=== PATIENT | female | born 1945 | race Caucasian/White ===

== ENCOUNTER 2017-05-19 07:50 | Day surgery (SDC) | payer OTHER ==
[2017-05-19] MEDS ORDERED: D5 LR 1000 ML 1,000 ML IV ONE (07:54)
[2017-05-19] MEDS ORDERED: DIPRIVAN VIAL 20 ML ONE (08:51)
[2017-05-19 09:32] VITALS: BP 112/66
== END 2017-05-19 09:38 | disposition home or self-care (01) ==
LOC: SURG1 07:50
PROVIDERS: ATTEND Surgery
PROC: 0DJD8ZZ Inspection of Lower Intestinal Tract, Via Natural or Artificial Opening Endoscopic (ICD-10-PCS; principal; 2017-05-19 09:15)
PROC: 0DBP8ZX Excision of Rectum, Via Natural or Artificial Opening Endoscopic, Diagnostic (ICD-10-PCS; principal; 2017-05-19 09:15)
DX: R10.84 Generalized abdominal pain (principal); K59.09 Other constipation; K43.9 Ventral hernia without obstruction or gangrene; K62.1 Rectal polyp; K57.30 Diverticulosis of large intestine without perforation or abscess without bleeding
CPT/HCPCS: 99100; A4217; J3490; J7120

== ENCOUNTER → 2017-05-25 | Outpatient (CLI) | payer OTHER ==
[2015-01-28 19:31] VITALS: BP 119/82
[~2017-05-25] MED LIST: NS 100 ML IV 100 ML IV ONE
[2017-05-25 09:24] LABS: CREATININE 1.53 mg/dL (0.55-1.02)
--- NOTE | 2017-05-25 10:52 | CT ---
HISTORY: Epigastric pain. Study: CT abdomen and pelvis without contrast Comparison: None. Technique: Multiple axial images of the abdomen and pelvis were obtained from the lung bases to the pubic symphy sis without the administration of IV contrast. Dose reduction techniques including Automated Exposur e Control (AEC) and adjustment of mA and kV were utilized. Findings: Study limited secondary to lack of IV contrast. 4 mm pulmonary nodule along the right major fissure (series 3, image 1). Bibasilar scarring versus at electasis. Otherwise, the visualized portions of the lung bases are unremarkable. Coronary artery ca lcifications. The liver, spleen, pancreas, kidneys, and adrenal glands are unremarkable in their CT a ppearance. The gallbladder is unremarkable in its CT appearance. No significant mesenteric lymphaden opathy or stranding can be observed. No free fluid or free air is seen within the abdomen. Supraumb ilical ventral hernia containing a loop of transverse colon with hernia neck of 4.4 cm. The bowel is otherwise without compromise. Scattered colonic diverticulum without evidence of diverticulitis. Cici ining large and small bowel appear normal. The uterus and ovaries appear surgically absent. The urina ry bladder is grossly unremarkable. Degenerative changes of the spine. No aggressive osseous lesions. IMPRESSION: 1. No CT evidence of acute abdominal/pelvic pathology. 2. Supraumbilical ventral hernia as above. 3. 4 mm pulmonary nodule along the right major fissure. Recommend dedicated CT of the chest for furth er characterization. 4. Other chronic findings as above. Reported By:
== END | disposition home or self-care (01) | DRG 392 ==
LOC: RAD 08:32
PROVIDERS: ATTEND Surgery
DX: R10.13 Epigastric pain (principal); K43.9 Ventral hernia without obstruction or gangrene; R91.1 Solitary pulmonary nodule
CPT/HCPCS: 36415; 74176; 82565; 84520; A4222

== ENCOUNTER → 2017-05-31 | Outpatient (CLI) | payer OTHER ==
[2017-05-19 09:32] VITALS: BP 112/66
[2017-05-31 10:26] LABS: BASOPHILS # (AUTO) 0.1 X10^3/uL (0.0-0.1); BASOPHILS % (AUTO) 1.2 % (0.2-1.0); BILIRUBIN,URINE 1+ (NEGATIVE); BLOOD/HEMOGLOBIN,URINE 1+ (NEGATIVE); EOSINOPHILS # (AUTO) 0.3 x10^3/uL (0.0-0.2); EOSINOPHILS % (AUTO) 4.6 % (0.9-2.9); GLUCOSE, URINE NEGATIVE (NEGATIVE); HEMATOCRIT 35.1 % (36.0-47.0); HEMOGLOBIN 11.5 g/dL (12.0-16.0); KETONES,URINE NEGATIVE (NEGATIVE); LEUKOCYTE ESTERASE ,URINE 3+ (NEGATIVE); LYMPHOCYTES # (AUTO) 1.3 X10^3/uL (1.3-2.9); LYMPHOCYTES % (AUTO) 22.2 % (21.0-51.0); MEAN CORPUSCULAR HEMOGLOBIN 30.3 pg (27.0-34.0); MEAN CORPUSCULAR HGB CONC 32.7 g/dL (33.0-35.0); MEAN CORPUSCULAR VOLUME 92.5 fL (80.0-100.0); MEAN PLATELET VOLUME 7.2 fL (7.4-11.0); MONOCYTES # (AUTO) 0.5 x10^3/uL (0.3-0.8); MONOCYTES % (AUTO) 9.2 % (0.0-13.0); NEUTROPHILS # (AUTO) 3.6 x10^3/uL (2.2-4.8); NEUTROPHILS % (AUTO) 62.8 % (42.0-75.0); NITRITES,URINE NEGATIVE (NEGATIVE); PLATELET COUNT 319 X10^3/uL (150.0-450.0); PROTEIN,URINE 2+ (NEGATIVE); RED BLOOD COUNT 3.79 X10^6/uL (3.5-5.4); UROBILINOGEN,URINE NORMAL (NORMAL); WHITE BLOOD COUNT 5.8 X10^3/uL (3.6-10.0)
[2017-05-31 10:37] LABS: ALBUMIN 3.3 g/dL (3.4-5.0); CALCIUM 8.7 mg/dL (8.5-10.1); CARBON DIOXIDE 27.2 mmol/L (21-32); COR CA(FOR HYPOALB) 9.3 mg/dL (8.5-10.1); CREATININE 1.66 mg/dL (0.55-1.02); TOTAL PROTEIN 7.4 g/dL (6.4-8.2)
[2017-05-31 10:42] LABS: APPEARANCE,URINE HAZY (CLEAR); COLOR,URINE YELLOW (YELLOW)
[2017-05-31 10:43] LABS: BACTERIA,URINE TRACE /HPF (NEGATIVE); SQUAMOUS EPITHELIAL CELL,UR NUMEROUS /HPF (NEGATIVE)
--- NOTE | 2017-05-31 11:36 | RAD ---
HISTORY: Preoperative exam for hernia repair Study: Two views of the chest Comparison: None Findings: The patient is rotated. The cardiac silhouette is enlarged. The lungs are clear without focal infil trate or effusion. The aorta is partially calcified and tortuous. IMPRESSION: 1. Cardiomegaly. Reported By:
== END | disposition home or self-care (01) | DRG 951 ==
LOC: LAB 09:47
PROVIDERS: ATTEND Surgery
DX: Z01.818 Encounter for other preprocedural examination (principal); K43.6 Other and unspecified ventral hernia with obstruction, without gangrene; Z01.810 Encounter for preprocedural cardiovascular examination; Z01.811 Encounter for preprocedural respiratory examination; I51.7 Cardiomegaly
CPT/HCPCS: 36415; 71046; 80053; 81001; 85025; 85610; 85730; 93005; 93010

== ENCOUNTER 2017-06-05 08:50 | Inpatient (IN) | payer OTHER ==
[2017-06-05] MEDS ORDERED: LR 1000 ML IV 1,000 ML IV ONE (09:04)
[2017-06-05] MEDS ORDERED: FLAGYL IV PREMIX 500 MG BAG 500 MG/100 ML BAG IV ONE (09:05)
[2017-06-05] MEDS ORDERED: ANCEF 1 GM IV PREMIX* 1 GM/50 ML BAG IV ONE (09:05)
[2017-06-05] MEDS ORDERED: QUELICIN (OR ANECTINE) ONE (09:10)
[2017-06-05] MEDS ORDERED: NORCURON INJ 10 MG VIAL ONE (09:10)
[2017-06-05] MEDS ORDERED: ROBINUL ONE (09:10)
[2017-06-05] MEDS ORDERED: ATROPINE SULFATE ONE (09:10)
[2017-06-05] MEDS ORDERED: ZOFRAN INJ 4 MG VIAL ONE (09:10)
[2017-06-05] MEDS ORDERED: ULTANE GAS IN ONE (09:10)
[2017-06-05] MEDS ORDERED: VERSED ONE (09:10)
[2017-06-05] MEDS ORDERED: EPHEDRINE SULFATE INJ ONE (09:10)
[2017-06-05] MEDS ORDERED: DIPRIVAN VIAL ONE (09:10)
[2017-06-05] MEDS ORDERED: NEOSTIGMINE INJ ONE (09:10)
[2017-06-05 09:33] VITALS: BMI 35.2
[2017-06-05] MEDS ORDERED: DILAUDID INJ ONE (10:00)
[2017-06-05] MEDS ORDERED: FENTANYL INJ 250 mcg ONE ×3 (10:01→10:10)
[2017-06-05] MEDS ORDERED: BACITRACIN VIAL ONE (10:14)
[2017-06-05] MEDS ORDERED: NS IRRIGATION 1000 ML 1,000 ML with BACITRACIN VIAL 50,000 UNT IR ONE ×2 (11:00)
[2017-06-05 11:08] LABS: BILIRUBIN,URINE NEGATIVE (NEGATIVE); BLOOD/HEMOGLOBIN,URINE 2+ (NEGATIVE); GLUCOSE, URINE NEGATIVE (NEGATIVE); KETONES,URINE NEGATIVE (NEGATIVE); LEUKOCYTE ESTERASE ,URINE NEGATIVE (NEGATIVE); NITRITES,URINE NEGATIVE (NEGATIVE); PROTEIN,URINE NEGATIVE (NEGATIVE); UROBILINOGEN,URINE NORMAL (NORMAL)
[2017-06-05 11:41] LABS: APPEARANCE,URINE CLEAR (CLEAR); COLOR,URINE YELLOW (YELLOW)
[2017-06-05 11:43] LABS: AMORPHOUS SEDIMENT,UR 2+ /HPF (NEGATIVE); BACTERIA,URINE TRACE /HPF (NEGATIVE); SQUAMOUS EPITHELIAL CELL,UR RARE /HPF (NEGATIVE)
[2017-06-05] MEDS ORDERED: BENADRYL INJ 50 MG VIAL IVP PRN (12:03)
[2017-06-05] MEDS ORDERED: DILAUDID INJ IVP PRN (12:03)
[2017-06-05] MEDS ORDERED: ZOFRAN INJ 4 MG VIAL IVP PRN (12:03)
[2017-06-05] MEDS ORDERED: PHENERGAN INJ 25 MG IVP PRN (12:03)
[2017-06-05] MEDS ORDERED: REGLAN INJ 10 MG VIAL IVP PRN (12:03)
[2017-06-05] MEDS ORDERED: DILAUDID INJ IVP ONE ×3 (12:15→12:25)
[2017-06-05] MEDS ORDERED: FENTANYL INJ 250 mcg IVP ONE (12:35)
[2017-06-05] MEDS: ANCEF VIAL 1 GM 1 GM in NS 100 ML IV + SPIKE MINIBAG* 100 ML IV SCH ×2 (13:07→21:05)
[2017-06-05] MEDS: DILAUDID INJ IVP PRN ×2 (13:23→21:13)
[2017-06-05] MEDS: D5 1/2 NS 1000 ML 1,000 ML IV SCH ×2 (13:24→21:05)
[2017-06-05] MEDS ORDERED: NS 250 ML IV 250 ML IV ONE (16:06)
--- NOTE | 2017-06-05 18:26 | OR.GENERIC ---
Post-Op Note Generic - Post-Op Note Operative Report: Pt underwent Laparotomy and repair of large incarcerated ventral hernia . the TC was in the hernia sac along with the omentum .. Pt did well with minimal blood loss . on IV ATB for only 24 h , DVT prophylaxis .. to have only water for now then advance her diet in am
[2017-06-05] MEDS: DESYREL PO SCH (22:38)
[2017-06-06] MEDS: TYLENOL 325 MG TAB PO PRN ×2 (00:40→21:00)
[2017-06-06] MEDS: D5 1/2 NS 1000 ML 1,000 ML IV SCH ×3 (04:24→21:25)
[2017-06-06] MEDS: DILAUDID INJ IVP PRN ×4 (04:24→21:40)
[2017-06-06] MEDS: ANCEF VIAL 1 GM 1 GM in NS 100 ML IV + SPIKE MINIBAG* 100 ML IV SCH ×3 (05:41→21:26)
[2017-06-06 05:52] LABS: BASOPHILS % (AUTO) 0.6 % (0.2-1.0); EOSINOPHILS # (AUTO) 0.1 x10^3/uL (0.0-0.2); EOSINOPHILS % (AUTO) 1.6 % (0.9-2.9); HEMOGLOBIN 9.7 g/dL (12.0-16.0); LYMPHOCYTES # (AUTO) 0.9 X10^3/uL (1.3-2.9); LYMPHOCYTES % (AUTO) 14.2 % (21.0-51.0); MEAN CORPUSCULAR HEMOGLOBIN 31.1 pg (27.0-34.0); MEAN CORPUSCULAR HGB CONC 33.5 g/dL (33.0-35.0); MEAN CORPUSCULAR VOLUME 92.7 fL (80.0-100.0); MEAN PLATELET VOLUME 7.2 fL (7.4-11.0); MONOCYTES # (AUTO) 0.7 x10^3/uL (0.3-0.8); MONOCYTES % (AUTO) 11.7 % (0.0-13.0); NEUTROPHILS # (AUTO) 4.5 x10^3/uL (2.2-4.8); NEUTROPHILS % (AUTO) 71.9 % (42.0-75.0); PLATELET COUNT 279 X10^3/uL (150.0-450.0); RED BLOOD COUNT 3.12 X10^6/uL (3.5-5.4); RED CELL DISTRIBUTION WIDTH 14.3 % (11.6-16.5); WHITE BLOOD COUNT 6.2 X10^3/uL (3.6-10.0)
[2017-06-06 06:06] LABS: ALBUMIN 2.6 g/dL (3.4-5.0); CALCIUM 7.7 mg/dL (8.5-10.1); CARBON DIOXIDE 25.7 mmol/L (21-32); COR CA(FOR HYPOALB) 8.8 mg/dL (8.5-10.1); CREATININE 1.52 mg/dL (0.55-1.02)
[2017-06-06] MEDS: LOVENOX INJ 40 MG SYR SC SCH (09:24)
[2017-06-06] MEDS ORDERED: GLUCOPHAGE ONE (11:27)
[2017-06-06] MEDS: EFFEXOR XR 150 MG CAP PO SCH (11:45)
[2017-06-06] MEDS: GLUCOPHAGE PO SCH (11:45)
[2017-06-06] MEDS: PERCOCET TAB 5/325 MG PO PRN (14:38)
[2017-06-06] MEDS ORDERED: ZOFRAN INJ 4 MG VIAL IVP PRN (17:12)
--- NOTE | 2017-06-06 18:26 | DR.CONSULT ---
Consult - Consultation for Day of: Date: 06/05/17 - Chief Complaint Chief Complaint: LARGE INCARCERATED VENTRAL HERNIA REPAIR - Allergies Allergies/Adverse Reactions: Allergies Allergy/AdvReac Type Severity Reaction Status Date / Time penicillin G Allergy Verified 05/19/17 08:12 - History of Present Illness History of Present Illness: IS STATUS POST LARGE INCARCERATED VENTRAL HERNIA REPAIR TODAY BY . I WAS CONSULTED FOR MEDICAL MANAGEMENT. FOLLOWING SURGERY, PATIENT WAS PLACED ON ANCEF 1GM IV Q8H, LOVENOX 40MG SC DAILY FOR DVT PROPHYLAXIS, AND DILAUDID 1MG IV Q3H PRN FOR PAIN CONTROL. PATIENT IS NOTED WITH AN AQUACELL SURGICAL DRESSING TO MEDIAL ABDOMEN. DRESSING IS DRY AND INTACT WITH NO SIGNS OR SYMPTOMS OF INFECTION NOTED TO SITE AT THIS TIME. PATIENT WAS PLACED ON A LIQUID DIET. WE WILL REVIEW HOME MEDICATIONS TODAY AND RESUME APPROPRIATE. WE WILL ALSO CONTINUE IV ANTIBIOTICS, IV ANTIBIOTICS, AND PAIN MEDICATIONS. WE PLAN TO FOLLOW UP WITH AM LABS AND CONTINUE TO MONITOR PATIENT. - Past Medical History Past Medical History: Anxiety, Arthritis, Coronary Artery Disease, CVA, Diabetes , Dyslipidemia, Renal Disease, Sleep Apnea - Past Surgical History Surgical History: Appendectomy, Hysterectomy Additional Surgical History: CATARACT SURGERY - Family History Family Medical History: Diabetes Mellitus, ID, Coronary Artery Disease, Sudden Cardiac , Hypertension - Social History Does patient currently use any type of tobacco product: No Have you used tobacco products in the last 12 months: No Type of Tobacco Use: None Does any household member use tobacco: No Alcohol Use: None Drug Use: None - Medications Home Medications: Oxycodone HCl/Acetaminophen [Oxycodone/Acetaminophen 5-325 mg] 1 tab PO Q6H PRN 06/05/17 [History Confirmed 06/05/17] - Review of Systems Constitutional: Weakness Eyes: No Symptoms Reported ENT: No Symptoms Reported Respiratory: No Symptoms Reported Cardiovascular: No Symptoms Reported Gastrointestinal: Nausea, Abdominal Pain Genitourinary: No Symptoms Reported Musculoskeletal: No Symptoms Reported Skin: Wound (SURGICAL WOUND TO MEDIAL ABDOMEN ) Neurological: Weakness - Physical Exam Vital Signs: Temperature 98.5 F Pulse Rate [Right Brachial] 78 Pulse Rate 65 Respiratory Rate 20 Blood Pressure [Right Arm] 124/64 Blood Pressure 143/89 O2 Sat by Pulse Oximetry 95 Oriented: Normal Eyes: Normal Ear: Normal Nose: Normal Throat: Normal Respiratory: Clear Throughout Cardiovascular: Normal : Normal Auscultation: Bowel Sounds: Decreased Palpation: Normal Tenderness: Diffuse, Guarding. negative: Rebound, Rigidity Skin: Normal, Wound (MEDIAL ABDOMEN SURGICAL WOUND ) Musculoskeletal: Normal Psychiatric: Normal Mood Description: Calm Affect: Normal Speech Pattern: Clear - Plan Plan: LIQUID DIET, PAIN MEDICATIONS, IV FLUIDS, PHYSICAL THERAPY WHEN CLEARS PATIENT, CONTINUE TO MONITOR
--- NOTE | 2017-06-06 18:39 | PCM.PROG ---
Progress Note - Progress Note for Day of Date: 06/06/17 - Subjective Subjective: IS ONE DAY POST OP LARGE INCARCERATED VENTRAL HERNIA REPAIR. TODAY, SHE IS ALERT AND ORIENTED, LYING IN BED ON MORNING ROUNDS. SHE IS NOTED WITH COMPLAINTS OF ABDOMINAL PAIN. ON EXAMINATION, HEART IS REGULAR IN RATE AND RHYTHM. BILATERAL LUNGS ARE CLEAR TO AUSCULTATION. ABDOMEN IS ROUND, SOFT, AND NOTED WITH A MIDLINE DRESSING TO SURGICAL SITE. DRESSING IS DRY AND INTACT WITH NO SIGNS OR SX INFECTION NOTED. DECREASED BOWEL SOUNDS NOTED IN ALL QUADRANTS. THERE IS NORMAL RANGE OF MOTION NOTED TO ALL EXTREMITIES. HER VITALS THIS MORNING ARE 98.4-84-20-97%-148/71. LABS WERE OBTAINED. ABNORMAL LAB VALUES INCLUDE THE FOLLOWING: RBC 3.12, HGB 9.7, HCT 29.0, CREATININE 1.52, GLUCOSE 172 , CALCIUM 7.8, AST 12, TOTAL PROTEIN 6.0, ALBUMIN 2.6. A URINALYSIS WAS OBTAINED ON ADMISSION AND REVEALED WBC 0-2, RBC 3-5, OCCULT BLOOD 2+, LEUKOCYTES NEGATIVE, BACTERIA TRACE. A URINE CULTURE IS PENDING. TODAY, WE WILL CONTINUE WITH CURRENT PLAN OF CARE. WE PLAN TO FOLLOW UP WITH AM LABS AND CONTINUE TO MONITOR PATIENT. - Past Medical Family Social History Past Med/Fam/Surg Hx: No changes since H&P Allergies: Allergies penicillin G Allergy (Verified 05/19/17 08:12) - Review of Systems ROS: No change since H&P - Vital Signs and I&O's Vital Signs: Temperature 100.0 F Pulse Rate [Right Brachial] 77 Pulse Rate 65 Respiratory Rate 20 Blood Pressure [Right Arm] 144/71 Blood Pressure 143/89 O2 Sat by Pulse Oximetry 93 Intake and Output: Intake & Output 06/04/17 06/05/17 06/06/17 06/07/17 11:59 11:59 11:59 11:59 Intake Total 781 240 Output Total 300 Balance -300 781 240 - Physical Exam Oriented: Normal Eyes: Normal Ear: Normal Nose: Normal Throat: Normal Respiratory: Normal Cardiovascular: Normal : Normal Auscultation: Bowel Sounds: Decreased Palpation: Normal Tenderness: Diffuse, Guarding. negative: Rebound, Rigidity Skin: Normal, Wound (MEDIAL ABDOMEN SURGICAL WOUND ) Musculoskeletal: Normal Psychiatric: Normal Mood Description: Calm Affect: Normal Speech Pattern: Clear - Laboratory and Diagnostics Result Diagrams: 06/06/17 05:20 06/06/17 05:20 Labs: 06/05/17 10:45 Urine,Clean Catch Urine Culture - Preliminary Laboratory WBC 6.2 X10^3/uL (3.6-10.0) 06/06/17 05:20 RBC 3.12 X10^6/uL (3.5-5.4) L 06/06/17 05:20 Hgb 9.7 g/dL (12.0-16.0) L 06/06/17 05:20 Hct 29.0 % (36.0-47.0) L 06/06/17 05:20 MCV 92.7 fL (80.0-100.0) 06/06/17 05:20 MCH 31.1 pg (27.0-34.0) 06/06/17 05:20 MCHC 33.5 g/dL (33.0-35.0) 06/06/17 05:20 RDW 14.3 % (11.6-16.5) 06/06/17 05:20 Plt Count 279 X10^3/uL (150.0-450.0) 06/06/17 05:20 MPV 7.2 fL (7.4-11.0) L 06/06/17 05:20 Neut % (Auto) 71.9 % (42.0-75.0) 06/06/17 05:20 Lymph % (Auto) 14.2 % (21.0-51.0) L 06/06/17 05:20 [place] % (Auto) 11.7 % (0.0-13.0) 06/06/17 05:20 Eos % (Auto) 1.6 % (0.9-2.9) 06/06/17 05:20 Baso % (Auto) 0.6 % (0.2-1.0) 06/06/17 05:20 Neut # (Auto) 4.5 x10^3/uL (2.2-4.8) 06/06/17 05:20 Lymph # (Auto) 0.9 X10^3/uL (1.3-2.9) L 06/06/17 05:20 Cross # (Auto) 0.7 x10^3/uL (0.3-0.8) 06/06/17 05:20 Eos # (Auto) 0.1 x10^3/uL (0.0-0.2) 06/06/17 05:20 Baso # (Auto) 0.0 X10^3/uL (0.0-0.1) 06/06/17 05:20 Absolute Nucleated RBC 0.0 /100WBC 06/06/17 05:20 Sodium 137 mmol/L (136-145) 06/06/17 05:20 Corrected Sodium 139 mmol/L (136-145) 06/06/17 05:20 Potassium 4.3 mmol/L (3.5-5.1) 06/06/17 05:20 Chloride 105 mmol/L (98-107) 06/06/17 05:20 Carbon Dioxide 25.7 mmol/L (21-32) 06/06/17 05:20 BUN 11 mg/dL (7-18) 06/06/17 05:20 Creatinine 1.52 mg/dL (0.55-1.02) H 06/06/17 05:20 Est GFR (MDRD) Af Amer 43 (>60) L 06/06/17 05:20 Est GFR (MDRD) Non-Af 36 (>60) L 06/06/17 05:20 Glucose 172 mg/dL (65-99) H 06/06/17 05:20 POC Glucose (mg/dL) 158 mg/dL (65-99) H 06/06/17 17:16 Calcium 7.7 mg/dL (8.5-10.1) L 06/06/17 05:20 Corrected Calcium 8.8 mg/dL (8.5-10.1) 06/06/17 05:20 Total Bilirubin 0.30 mg/dL (0.2-1.0) 06/06/17 05:20 AST 12 Units/L (15-37) L 06/06/17 05:20 ALT 15 Units/L (12-78) 06/06/17 05:20 Alkaline Phosphatase 78 Units/L (46-116) 06/06/17 05:20 Total Protein 6.0 g/dL (6.4-8.2) L 06/06/17 05:20 Albumin 2.6 g/dL (3.4-5.0) L 06/06/17 05:20 Globulin 3.4 g/dL (2.5-4.5) 06/06/17 05:20 Albumin/Globulin Ratio 0.8 Ratio (1.1-2.1) L 06/06/17 05:20 Specimen Type Catherized urine 06/05/17 10:45 Urine Color Yellow (YELLOW) 06/05/17 10:45 Urine Appearance Clear (CLEAR) 06/05/17 10:45 Urine pH 5.0 (5.0 - 8.0) 06/05/17 10:45 Ur Specific [place] 1.015 (1.000-1.030) 06/05/17 10:45 Urine Protein Negative (NEGATIVE) 06/05/17 10:45 Urine Glucose (UA) Negative (NEGATIVE) 06/05/17 10:45 Urine Ketones Negative (NEGATIVE) 06/05/17 10:45 Urine Occult Blood 2+ (NEGATIVE) 06/05/17 10:45 Urine Nitrite Negative (NEGATIVE) 06/05/17 10:45 Urine Bilirubin Negative (NEGATIVE) 06/05/17 10:45 Urine Urobilinogen Normal (NORMAL) 06/05/17 10:45 Ur Leukocyte Esterase Negative (NEGATIVE) 06/05/17 10:45 Urine RBC 3-5 /HPF (NONE SEEN) 06/05/17 10:45 Urine WBC 0-2 /HPF (NONE SEEN) 06/05/17 10:45 Ur Squamous Epith Cells Rare /HPF (NEGATIVE) 06/05/17 10:45 Amorphous Sediment 2+ /HPF (NEGATIVE) 06/05/17 10:45 Urine Bacteria Trace /HPF (NEGATIVE) 06/05/17 10:45 Ur Culture Indicated? Yes/culture set up 06/05/17 10:45 Tissue Pathology To follow 06/05/17 12:18 - Plan (1) Status post repair of ventral hernia Status: Acute Plan: CONTINUE IV FLUIDS, PAIN MEDICATION, AND IV ANTIBIOTICS. PHYSICAL THERAPY WHEN PATIENT IS CLEARED BY
[2017-06-06] MEDS: DESYREL PO SCH ×2 (21:25)
[2017-06-07] MEDS: DILAUDID INJ IVP PRN (04:32)
[2017-06-07] MEDS: D5 1/2 NS 1000 ML 1,000 ML IV SCH ×3 (04:33→20:34)
[2017-06-07] MEDS: ANCEF VIAL 1 GM 1 GM in NS 100 ML IV + SPIKE MINIBAG* 100 ML IV SCH (05:19)
[2017-06-07 06:16] LABS: BASOPHILS # (AUTO) 0.1 X10^3/uL (0.0-0.1); BASOPHILS % (AUTO) 0.7 % (0.2-1.0); EOSINOPHILS # (AUTO) 0.2 x10^3/uL (0.0-0.2); EOSINOPHILS % (AUTO) 2.7 % (0.9-2.9); HEMATOCRIT 28.5 % (36.0-47.0); HEMOGLOBIN 9.4 g/dL (12.0-16.0); LYMPHOCYTES % (AUTO) 13.1 % (21.0-51.0); MEAN CORPUSCULAR HGB CONC 33.2 g/dL (33.0-35.0); MEAN CORPUSCULAR VOLUME 93.4 fL (80.0-100.0); MEAN PLATELET VOLUME 7.3 fL (7.4-11.0); MONOCYTES # (AUTO) 0.8 x10^3/uL (0.3-0.8); MONOCYTES % (AUTO) 11.1 % (0.0-13.0); NEUTROPHILS # (AUTO) 5.4 x10^3/uL (2.2-4.8); NEUTROPHILS % (AUTO) 72.4 % (42.0-75.0); PLATELET COUNT 275 X10^3/uL (150.0-450.0); RED BLOOD COUNT 3.05 X10^6/uL (3.5-5.4); RED CELL DISTRIBUTION WIDTH 14.5 % (11.6-16.5); WHITE BLOOD COUNT 7.4 X10^3/uL (3.6-10.0)
[2017-06-07 06:29] LABS: ALBUMIN 2.5 g/dL (3.4-5.0); CALCIUM 7.7 mg/dL (8.5-10.1); CARBON DIOXIDE 24.4 mmol/L (21-32); COR CA(FOR HYPOALB) 8.9 mg/dL (8.5-10.1); CREATININE 1.27 mg/dL (0.55-1.02); TOTAL PROTEIN 6.2 g/dL (6.4-8.2)
--- NOTE | 2017-06-07 07:22 | RAD ---
HISTORY: Cough, fever Study: Chest AP portable Comparison: 05/31/2017 Findings: The heart is enlarged. No congestive heart failure is noted. The zaki are normal. The aorta is calcif ied. The lungs are mildly hypo inflated but free of acute infiltrates. No pleural effusions are ident ified. The bony thorax is unremarkable. IMPRESSION: Moderate cardiomegaly without congestive heart failure Lungs mildly hypo inflated but free of acute infiltrates Reported By:
[2017-06-07] MEDS ORDERED: GLUCOPHAGE ONE (07:41)
[2017-06-07] MEDS: GLUCOPHAGE PO SCH (08:34)
[2017-06-07] MEDS: COZAAR PO SCH (08:34)
[2017-06-07] MEDS: HYDROCHLOROTHIAZIDE 12.5 MG CAP PO SCH (08:34)
[2017-06-07] MEDS: PERCOCET TAB 5/325 MG PO PRN ×2 (08:35→18:06)
[2017-06-07] MEDS: LOVENOX INJ 40 MG SYR SC SCH (08:35)
[2017-06-07] MEDS: EFFEXOR XR 150 MG CAP PO SCH (08:35)
--- NOTE | 2017-06-07 08:56 | DR.PROGNOT ---
Hospital Progress Notes - Progress Note for Day of: Progress Note Date: 06/07/17 - Chief Complaint Chief Complaint: PO laparotomy , repair of large incarcerated ventral hernia . still c/o nausea , no vaginal bleeding today. appetite is poor . was having low grade fever . - Past Medical Family Social History Past Med/Fam/Surg Hx: No changes since H&P Allergies: Allergies penicillin G Allergy (Verified 05/19/17 08:12) - Review Of Systems ROS: No change since H&P - Vital Signs Vital Signs: Temperature 98.6 F Pulse Rate [Right Brachial] 88 Pulse Rate 65 Respiratory Rate 16 Blood Pressure [Right Arm] 131/66 Blood Pressure 143/89 O2 Sat by Pulse Oximetry 96 - Physical Exam Oriented: Normal Eyes: Normal Ear: Normal Nose: Normal Throat: Normal Respiratory: Normal, Rhonchi (few scattered rhonchi both lung monte .), OTHER Cardiovascular: Normal : Normal GI:Auscultation: Decreased GI: Tenderness: Diffuse (incisional tenderness .BS +). negative: Rebound, Rigidity Skin: Normal, Wound (MEDIAL ABDOMEN SURGICAL WOUND ) Musculoskeletal: Normal Psychiatric: Normal Mood Description: Calm Affect: Normal Speech Pattern: Clear, Appropriate - Laboratory and Diagnostics Result Diagrams: 06/07/17 05:26 06/07/17 05:26 Labs: 06/05/17 10:45 Urine,Clean Catch Urine Culture - Final Laboratory WBC 7.4 X10^3/uL (3.6-10.0) 06/07/17 05:26 RBC 3.05 X10^6/uL (3.5-5.4) L 06/07/17 05:26 Hgb 9.4 g/dL (12.0-16.0) L 06/07/17 05:26 Hct 28.5 % (36.0-47.0) L 06/07/17 05:26 MCV 93.4 fL (80.0-100.0) 06/07/17 05:26 MCH 31.0 pg (27.0-34.0) 06/07/17 05:26 MCHC 33.2 g/dL (33.0-35.0) 06/07/17 05:26 RDW 14.5 % (11.6-16.5) 06/07/17 05:26 Plt Count 275 X10^3/uL (150.0-450.0) 06/07/17 05:26 MPV 7.3 fL (7.4-11.0) L 06/07/17 05:26 Neut % (Auto) 72.4 % (42.0-75.0) 06/07/17 05:26 Lymph % (Auto) 13.1 % (21.0-51.0) L 06/07/17 05:26 Saline % (Auto) 11.1 % (0.0-13.0) 06/07/17 05:26 Eos % (Auto) 2.7 % (0.9-2.9) 06/07/17 05:26 Baso % (Auto) 0.7 % (0.2-1.0) 06/07/17 05:26 Neut # (Auto) 5.4 x10^3/uL (2.2-4.8) H 06/07/17 05:26 Lymph # (Auto) 1.0 X10^3/uL (1.3-2.9) L 06/07/17 05:26 Saline # (Auto) 0.8 x10^3/uL (0.3-0.8) 06/07/17 05:26 Eos # (Auto) 0.2 x10^3/uL (0.0-0.2) 06/07/17 05:26 Baso # (Auto) 0.1 X10^3/uL (0.0-0.1) 06/07/17 05:26 Absolute Nucleated RBC 0.0 /100WBC 06/07/17 05:26 Sodium 136 mmol/L (136-145) 06/07/17 05:26 Corrected Sodium 138 mmol/L (136-145) 06/07/17 05:26 Potassium 4.3 mmol/L (3.5-5.1) 06/07/17 05:26 Chloride 104 mmol/L (98-107) 06/07/17 05:26 Carbon Dioxide 24.4 mmol/L (21-32) 06/07/17 05:26 BUN 8 mg/dL (7-18) 06/07/17 05:26 Creatinine 1.27 mg/dL (0.55-1.02) H 06/07/17 05:26 Est GFR (MDRD) Af Amer 53 (>60) L 06/07/17 05:26 Est GFR (MDRD) Non-Af 44 (>60) L 06/07/17 05:26 Glucose 165 mg/dL (65-99) H 06/07/17 05:26 POC Glucose (mg/dL) 156 mg/dL (65-99) H 06/07/17 05:50 Calcium 7.7 mg/dL (8.5-10.1) L 06/07/17 05:26 Corrected Calcium 8.9 mg/dL (8.5-10.1) 06/07/17 05:26 Total Bilirubin 0.20 mg/dL (0.2-1.0) 06/07/17 05:26 AST 10 Units/L (15-37) L 06/07/17 05:26 ALT 10 Units/L (12-78) L 06/07/17 05:26 Alkaline Phosphatase 80 Units/L (46-116) 06/07/17 05:26 Total Protein 6.2 g/dL (6.4-8.2) L 06/07/17 05:26 Albumin 2.5 g/dL (3.4-5.0) L 06/07/17 05:26 Globulin 3.7 g/dL (2.5-4.5) 06/07/17 05:26 Albumin/Globulin Ratio 0.7 Ratio (1.1-2.1) L 06/07/17 05:26 Specimen Type Catherized urine 06/05/17 10:45 Urine Color Yellow (YELLOW) 06/05/17 10:45 Urine Appearance Clear (CLEAR) 06/05/17 10:45 Urine pH 5.0 (5.0 - 8.0) 06/05/17 10:45 Ur Specific [place] 1.015 (1.000-1.030) 06/05/17 10:45 Urine Protein Negative (NEGATIVE) 06/05/17 10:45 Urine Glucose (UA) Negative (NEGATIVE) 06/05/17 10:45 Urine Ketones Negative (NEGATIVE) 06/05/17 10:45 Urine Occult Blood 2+ (NEGATIVE) 06/05/17 10:45 Urine Nitrite Negative (NEGATIVE) 06/05/17 10:45 Urine Bilirubin Negative (NEGATIVE) 06/05/17 10:45 Urine Urobilinogen Normal (NORMAL) 06/05/17 10:45 Ur Leukocyte Esterase Negative (NEGATIVE) 06/05/17 10:45 Urine RBC 3-5 /HPF (NONE SEEN) 06/05/17 10:45 Urine WBC 0-2 /HPF (NONE SEEN) 06/05/17 10:45 Ur Squamous Epith Cells Rare /HPF (NEGATIVE) 06/05/17 10:45 Amorphous Sediment 2+ /HPF (NEGATIVE) 06/05/17 10:45 Urine Bacteria Trace /HPF (NEGATIVE) 06/05/17 10:45 Ur Culture Indicated? Yes/culture set up 06/05/17 10:45 Tissue Pathology To follow 06/05/17 12:18 - Assessment and Plan 1: PO laparotomy , repair of large incarcerated ventral hernia . obesity . DM. will advance diet. OOB with binder. D/C Dilaudid . DVT prophylaxis . - Problem Patient Problems: Patient Problems Incarcerated ventral hernia (Acute) K46.0 Status post repair of ventral hernia (Acute) Z98.890, Z87.19
--- NOTE | 2017-06-07 19:50 | PCM.PROG ---
Progress Note - Progress Note for Day of Date: 06/07/17 - Subjective Subjective: IS DAY 2 POST OP LARGE INCARCERATED VENTRAL HERNIA REPAIR. TODAY, SHE IS ALERT AND ORIENTED, LYING IN BED ON MORNING ROUNDS. SHE IS NOTED WITH COMPLAINTS OF ABDOMINAL PAIN, BUT REPORTS SLIGHT IMPROVEMENT SINCE YESTERDAY. SHE IS ALSO NOTED WITH COMPLAINTS OF NAUSEA AND DECREASED APPETITIE. STAFF REPORTED THAT PATIENT HAD A PRODUCTIVE COUGH YESTERDAY. COUGH HAS IMPROVED TODAY. ON EXAMINATION, HEART IS REGULAR IN RATE AND RHYTHM. BILATERAL LUNGS ARE CLEAR TO AUSCULTATION. ABDOMEN IS ROUND, SOFT, AND NOTED WITH A MIDLINE DRESSING TO SURGICAL SITE. DRESSING IS DRY AND INTACT WITH NO SIGNS OR SX INFECTION NOTED. DECREASED BOWEL SOUNDS NOTED IN ALL QUADRANTS. THERE IS NORMAL RANGE OF MOTION NOTED TO ALL EXTREMITIES. HER VITALS THIS MORNING ARE 98.6-89-20-97%-123/63. LABS WERE OBTAINED. ABNORMAL LAB VALUES INCLUDE THE FOLLOWING: RBC 3.05, HGB 9.4, HCT 28.5, CREATININE 1.27, GLUCOSE 165, CALCIUM 7.7, AST 10, ALT 10, TOTAL PROTEIN 6.2, ALBUMIN 2.5. A CHEST XRAY WAS OBTAINED TODAY AND REVEALED MODERATE CARDIOMEGALY WITHOUT CONGESTIVE HEART FAILURE. LUNGS MILDLY HYPO INFLATED BUT FREE OF ACUTE INFILTRATES. TODAY, WE WILL CONTINUE WITH CURRENT PLAN OF CARE. WE PLAN TO FOLLOW UP WITH AM LABS AND CONTINUE TO MONITOR PATIENT. - Past Medical Family Social History Past Med/Fam/Surg Hx: No changes since H&P Allergies: Allergies penicillin G Allergy (Verified 05/19/17 08:12) - Review of Systems ROS: No change since H&P - Vital Signs and I&O's Vital Signs: Temperature 98.2 F Pulse Rate [Right Brachial] 72 Pulse Rate 65 Respiratory Rate 18 Blood Pressure [Right Arm] 90/54 Blood Pressure 143/89 O2 Sat by Pulse Oximetry 94 Intake and Output: Intake & Output 06/05/17 06/06/17 06/07/17 06/08/17 11:59 11:59 11:59 11:59 Intake Total 781 1765 880 Output Total 300 Balance -716 827 8079 880 - Physical Exam Oriented: Normal Eyes: Normal Ear: Normal Nose: Normal Throat: Normal Respiratory: Normal, Rhonchi (few scattered rhonchi both lung monte .), OTHER Cardiovascular: Normal : Normal Auscultation: Bowel Sounds: Decreased Palpation: Normal Tenderness: Diffuse (incisional tenderness .BS +), Guarding. negative: Rebound , Rigidity Skin: Normal, Wound (MEDIAL ABDOMEN SURGICAL WOUND ) Musculoskeletal: Normal Psychiatric: Normal Mood Description: Calm Affect: Normal Speech Pattern: Clear, Appropriate - Laboratory and Diagnostics Result Diagrams: 06/07/17 05:26 06/07/17 05:26 Labs: 06/05/17 10:45 Urine,Clean Catch Urine Culture - Final Laboratory WBC 7.4 X10^3/uL (3.6-10.0) 06/07/17 05:26 RBC 3.05 X10^6/uL (3.5-5.4) L 06/07/17 05:26 Hgb 9.4 g/dL (12.0-16.0) L 06/07/17 05:26 Hct 28.5 % (36.0-47.0) L 06/07/17 05:26 MCV 93.4 fL (80.0-100.0) 06/07/17 05:26 MCH 31.0 pg (27.0-34.0) 06/07/17 05:26 MCHC 33.2 g/dL (33.0-35.0) 06/07/17 05:26 RDW 14.5 % (11.6-16.5) 06/07/17 05:26 Plt Count 275 X10^3/uL (150.0-450.0) 06/07/17 05:26 MPV 7.3 fL (7.4-11.0) L 06/07/17 05:26 Neut % (Auto) 72.4 % (42.0-75.0) 06/07/17 05:26 Lymph % (Auto) 13.1 % (21.0-51.0) L 06/07/17 05:26 [place] % (Auto) 11.1 % (0.0-13.0) 06/07/17 05:26 Eos % (Auto) 2.7 % (0.9-2.9) 06/07/17 05:26 Baso % (Auto) 0.7 % (0.2-1.0) 06/07/17 05:26 Neut # (Auto) 5.4 x10^3/uL (2.2-4.8) H 06/07/17 05:26 Lymph # (Auto) 1.0 X10^3/uL (1.3-2.9) L 06/07/17 05:26 [place] # (Auto) 0.8 x10^3/uL (0.3-0.8) 06/07/17 05:26 Eos # (Auto) 0.2 x10^3/uL (0.0-0.2) 06/07/17 05:26 Baso # (Auto) 0.1 X10^3/uL (0.0-0.1) 06/07/17 05:26 Absolute Nucleated RBC 0.0 /100WBC 06/07/17 05:26 Sodium 136 mmol/L (136-145) 06/07/17 05:26 Corrected Sodium 138 mmol/L (136-145) 06/07/17 05:26 Potassium 4.3 mmol/L (3.5-5.1) 06/07/17 05:26 Chloride 104 mmol/L (98-107) 06/07/17 05:26 Carbon Dioxide 24.4 mmol/L (21-32) 06/07/17 05:26 BUN 8 mg/dL (7-18) 06/07/17 05:26 Creatinine 1.27 mg/dL (0.55-1.02) H 06/07/17 05:26 Est GFR (MDRD) Af Amer 53 (>60) L 06/07/17 05:26 Est GFR (MDRD) Non-Af 44 (>60) L 06/07/17 05:26 Glucose 165 mg/dL (65-99) H 06/07/17 05:26 POC Glucose (mg/dL) 156 mg/dL (65-99) H 06/07/17 05:50 Calcium 7.7 mg/dL (8.5-10.1) L 06/07/17 05:26 Corrected Calcium 8.9 mg/dL (8.5-10.1) 06/07/17 05:26 Total Bilirubin 0.20 mg/dL (0.2-1.0) 06/07/17 05:26 AST 10 Units/L (15-37) L 06/07/17 05:26 ALT 10 Units/L (12-78) L 06/07/17 05:26 Alkaline Phosphatase 80 Units/L (46-116) 06/07/17 05:26 Total Protein 6.2 g/dL (6.4-8.2) L 06/07/17 05:26 Albumin 2.5 g/dL (3.4-5.0) L 06/07/17 05:26 Globulin 3.7 g/dL (2.5-4.5) 06/07/17 05:26 Albumin/Globulin Ratio 0.7 Ratio (1.1-2.1) L 06/07/17 05:26 Specimen Type Catherized urine 06/05/17 10:45 Urine Color Yellow (YELLOW) 06/05/17 10:45 Urine Appearance Clear (CLEAR) 06/05/17 10:45 Urine pH 5.0 (5.0 - 8.0) 06/05/17 10:45 Ur Specific [place] 1.015 (1.000-1.030) 06/05/17 10:45 Urine Protein Negative (NEGATIVE) 06/05/17 10:45 Urine Glucose (UA) Negative (NEGATIVE) 06/05/17 10:45 Urine Ketones Negative (NEGATIVE) 06/05/17 10:45 Urine Occult Blood 2+ (NEGATIVE) 06/05/17 10:45 Urine Nitrite Negative (NEGATIVE) 06/05/17 10:45 Urine Bilirubin Negative (NEGATIVE) 06/05/17 10:45 Urine Urobilinogen Normal (NORMAL) 06/05/17 10:45 Ur Leukocyte Esterase Negative (NEGATIVE) 06/05/17 10:45 Urine RBC 3-5 /HPF (NONE SEEN) 06/05/17 10:45 Urine WBC 0-2 /HPF (NONE SEEN) 06/05/17 10:45 Ur Squamous Epith Cells Rare /HPF (NEGATIVE) 06/05/17 10:45 Amorphous Sediment 2+ /HPF (NEGATIVE) 06/05/17 10:45 Urine Bacteria Trace /HPF (NEGATIVE) 06/05/17 10:45 Ur Culture Indicated? Yes/culture set up 06/05/17 10:45 Tissue Pathology To follow 06/05/17 12:18 - Plan (1) Status post repair of ventral hernia Status: Acute Plan: CONTINUE IV FLUIDS, PAIN MEDICATION, AND IV ANTIBIOTICS. PHYSICAL THERAPY WHEN PATIENT IS CLEARED BY
[2017-06-07] MEDS: DESYREL PO SCH ×2 (20:34→20:35)
[2017-06-08] MEDS: PERCOCET TAB 5/325 MG PO PRN ×3 (04:17→14:44)
[2017-06-08] MEDS: D5 1/2 NS 1000 ML 1,000 ML IV SCH (05:17)
[2017-06-08 05:38] LABS: BASOPHILS % (AUTO) 0.8 % (0.2-1.0); EOSINOPHILS # (AUTO) 0.5 x10^3/uL (0.0-0.2); EOSINOPHILS % (AUTO) 8.2 % (0.9-2.9); LYMPHOCYTES # (AUTO) 1.3 X10^3/uL (1.3-2.9); LYMPHOCYTES % (AUTO) 24.4 % (21.0-51.0); MEAN CORPUSCULAR HEMOGLOBIN 30.9 pg (27.0-34.0); MEAN CORPUSCULAR HGB CONC 33.3 g/dL (33.0-35.0); MEAN CORPUSCULAR VOLUME 92.9 fL (80.0-100.0); MEAN PLATELET VOLUME 7.6 fL (7.4-11.0); MONOCYTES # (AUTO) 0.6 x10^3/uL (0.3-0.8); MONOCYTES % (AUTO) 10.7 % (0.0-13.0); NEUTROPHILS # (AUTO) 3.1 x10^3/uL (2.2-4.8); NEUTROPHILS % (AUTO) 55.9 % (42.0-75.0); PLATELET COUNT 275 X10^3/uL (150.0-450.0); RED BLOOD COUNT 2.91 X10^6/uL (3.5-5.4); RED CELL DISTRIBUTION WIDTH 14.2 % (11.6-16.5); WHITE BLOOD COUNT 5.5 X10^3/uL (3.6-10.0)
[2017-06-08 05:45] LABS: ALBUMIN 2.4 g/dL (3.4-5.0); CALCIUM 7.9 mg/dL (8.5-10.1); CARBON DIOXIDE 24.6 mmol/L (21-32); COR CA(FOR HYPOALB) 9.2 mg/dL (8.5-10.1); CREATININE 1.32 mg/dL (0.55-1.02); TOTAL PROTEIN 5.9 g/dL (6.4-8.2)
[2017-06-08] MEDS ORDERED: GLUCOPHAGE ONE (07:36)
[2017-06-08] MEDS ORDERED: PROVENTIL NEB TX 0.083% 2.5MG/ 3ML ONE (09:24)
[2017-06-08] MEDS: HYDROCHLOROTHIAZIDE 12.5 MG CAP PO SCH (09:38)
[2017-06-08] MEDS: EFFEXOR XR 150 MG CAP PO SCH (09:38)
[2017-06-08] MEDS: COZAAR PO SCH (09:38)
[2017-06-08] MEDS: GLUCOPHAGE PO SCH (09:40)
[2017-06-08] MEDS: LOVENOX INJ 40 MG SYR SC SCH (09:41)
[2017-06-08] MEDS: DUONEB 0.5 MG/3 MG NEB SCH ×2 (10:00→18:00)
[2017-06-08] MEDS: ROBITUSSIN DM PO SCH ×3 (10:09→17:20)
--- NOTE | 2017-06-08 10:13 | DR.PROGNOT ---
Hospital Progress Notes - Progress Note for Day of: Progress Note Date: 06/08/17 - Chief Complaint Chief Complaint: PO laparotomy , repair of large incarcerated ventral hernia . having excessive dry cough with bronchospasm. still c/o nausea and poor appetite. - Past Medical Family Social History Past Med/Fam/Surg Hx: No changes since H&P Allergies: Allergies penicillin G Allergy (Verified 05/19/17 08:12) - Review Of Systems ROS: No change since H&P - Vital Signs Vital Signs: Temperature 99.0 F Pulse Rate [Right Brachial] 86 Pulse Rate 65 Respiratory Rate 20 Blood Pressure [Right Arm] 121/59 Blood Pressure 143/89 O2 Sat by Pulse Oximetry 92 - Physical Exam Oriented: Normal Eyes: Normal Ear: Normal Nose: Normal Throat: Normal Respiratory: Rhonchi (few scattered rhonchi both lung monte .), OTHER (moild wheezing ) Cardiovascular: Normal : Normal GI:Auscultation: Decreased GI:Palpation: Normal GI: Tenderness: Diffuse (incisional tenderness .BS +), Guarding. negative: Rebound, Rigidity Skin: Normal, Wound (MEDIAL ABDOMEN SURGICAL WOUND ) Musculoskeletal: Normal Psychiatric: Normal Mood Description: Calm Affect: Normal Speech Pattern: Clear, Appropriate - Laboratory and Diagnostics Result Diagrams: 06/08/17 04:00 06/08/17 04:00 Labs: 06/05/17 10:45 Urine,Clean Catch Urine Culture - Final Laboratory WBC 5.5 X10^3/uL (3.6-10.0) 06/08/17 04:00 RBC 2.91 X10^6/uL (3.5-5.4) L 06/08/17 04:00 Hgb 9.0 g/dL (12.0-16.0) L 06/08/17 04:00 Hct 27.0 % (36.0-47.0) L 06/08/17 04:00 MCV 92.9 fL (80.0-100.0) 06/08/17 04:00 MCH 30.9 pg (27.0-34.0) 06/08/17 04:00 MCHC 33.3 g/dL (33.0-35.0) 06/08/17 04:00 RDW 14.2 % (11.6-16.5) 06/08/17 04:00 Plt Count 275 X10^3/uL (150.0-450.0) 06/08/17 04:00 MPV 7.6 fL (7.4-11.0) 06/08/17 04:00 Neut % (Auto) 55.9 % (42.0-75.0) 06/08/17 04:00 Lymph % (Auto) 24.4 % (21.0-51.0) 06/08/17 04:00 Lea % (Auto) 10.7 % (0.0-13.0) 06/08/17 04:00 Eos % (Auto) 8.2 % (0.9-2.9) H 06/08/17 04:00 Baso % (Auto) 0.8 % (0.2-1.0) 06/08/17 04:00 Neut # (Auto) 3.1 x10^3/uL (2.2-4.8) 06/08/17 04:00 Lymph # (Auto) 1.3 X10^3/uL (1.3-2.9) 06/08/17 04:00 Lea # (Auto) 0.6 x10^3/uL (0.3-0.8) 06/08/17 04:00 Eos # (Auto) 0.5 x10^3/uL (0.0-0.2) H 06/08/17 04:00 Baso # (Auto) 0.0 X10^3/uL (0.0-0.1) 06/08/17 04:00 Absolute Nucleated RBC 0.0 /100WBC 06/08/17 04:00 Sodium 139 mmol/L (136-145) 06/08/17 04:00 Corrected Sodium 139 mmol/L (136-145) 06/08/17 04:00 Potassium 3.9 mmol/L (3.5-5.1) 06/08/17 04:00 Chloride 106 mmol/L (98-107) 06/08/17 04:00 Carbon Dioxide 24.6 mmol/L (21-32) 06/08/17 04:00 BUN 7 mg/dL (7-18) 06/08/17 04:00 Creatinine 1.32 mg/dL (0.55-1.02) H 06/08/17 04:00 Est GFR (MDRD) Af Amer 51 (>60) L 06/08/17 04:00 Est GFR (MDRD) Non-Af 42 (>60) L 06/08/17 04:00 Glucose 113 mg/dL (65-99) H 06/08/17 04:00 POC Glucose (mg/dL) 107 mg/dL (65-99) H 06/07/17 20:44 Calcium 7.9 mg/dL (8.5-10.1) L 06/08/17 04:00 Corrected Calcium 9.2 mg/dL (8.5-10.1) 06/08/17 04:00 Total Bilirubin 0.30 mg/dL (0.2-1.0) 06/08/17 04:00 AST 8 Units/L (15-37) L 06/08/17 04:00 ALT 9 Units/L (12-78) L 06/08/17 04:00 Alkaline Phosphatase 75 Units/L (46-116) 06/08/17 04:00 Total Protein 5.9 g/dL (6.4-8.2) L 06/08/17 04:00 Albumin 2.4 g/dL (3.4-5.0) L 06/08/17 04:00 Globulin 3.5 g/dL (2.5-4.5) 06/08/17 04:00 Albumin/Globulin Ratio 0.7 Ratio (1.1-2.1) L 06/08/17 04:00 Specimen Type Catherized urine 06/05/17 10:45 Urine Color Yellow (YELLOW) 06/05/17 10:45 Urine Appearance Clear (CLEAR) 06/05/17 10:45 Urine pH 5.0 (5.0 - 8.0) 06/05/17 10:45 Ur Specific Le[place] 1.015 (1.000-1.030) 06/05/17 10:45 Urine Protein Negative (NEGATIVE) 06/05/17 10:45 Urine Glucose (UA) Negative (NEGATIVE) 06/05/17 10:45 Urine Ketones Negative (NEGATIVE) 06/05/17 10:45 Urine Occult Blood 2+ (NEGATIVE) 06/05/17 10:45 Urine Nitrite Negative (NEGATIVE) 06/05/17 10:45 Urine Bilirubin Negative (NEGATIVE) 06/05/17 10:45 Urine Urobilinogen Normal (NORMAL) 06/05/17 10:45 Ur Leukocyte Esterase Negative (NEGATIVE) 06/05/17 10:45 Urine RBC 3-5 /HPF (NONE SEEN) 06/05/17 10:45 Urine WBC 0-2 /HPF (NONE SEEN) 06/05/17 10:45 Ur Squamous Epith Cells Rare /HPF (NEGATIVE) 06/05/17 10:45 Amorphous Sediment 2+ /HPF (NEGATIVE) 06/05/17 10:45 Urine Bacteria Trace /HPF (NEGATIVE) 06/05/17 10:45 Ur Culture Indicated? Yes/culture set up 06/05/17 10:45 Tissue Pathology To follow 06/05/17 12:18 - Assessment and Plan 1: PO laparotomy , repair of large incarcerated ventral hernia . bronchospasm with excessive cough. DM. will start inhilation Tx and respiratory care. advance diet. OOB with binder. DVT prophylaxis . - Problem Patient Problems: Patient Problems Incarcerated ventral hernia (Acute) K46.0 Status post repair of ventral hernia (Acute) Z98.890, Z87.19
[2017-06-08 16:12] VITALS: BP 113/63
[2017-06-08] MEDS ORDERED: COLACE CAP 100 MG PO SCH (21:00)
== END 2017-06-08 18:25 | disposition home or self-care (01) | DRG 395 ==
LOC: MED/SURG 08:50
PROVIDERS: ADMIT Surgery; ATTEND Surgery
PROC: 0DNU0ZZ Release Omentum, Open Approach (ICD-10-PCS; 2017-06-05)
PROC: 0WQF0ZZ Repair Abdominal Wall, Open Approach (ICD-10-PCS; principal; 2017-06-05 10:30)
DX: K43.6 Other and unspecified ventral hernia with obstruction, without gangrene (principal); I25.10 Atherosclerotic heart disease of native coronary artery without angina pectoris; E11.65 Type 2 diabetes mellitus with hyperglycemia; R10.84 Generalized abdominal pain; J98.01 Acute bronchospasm; R26.89 Other abnormalities of gait and mobility
CPT/HCPCS: 36415; 71045; 80053; 81001; 85025; 87086; 88302; 94640; 94760; 99100; A4216; A4222; S0030; J0330; J0690; J1170; J1650; J2250; J2405; J2710; J3010; J3490; J7042; J7120; J7613; J7620

== ENCOUNTER 2021-12-15 15:09 | Observation (INO) ==
[2021-12-15 16:23] VITALS: BMI 34.4
[2021-12-15] MEDS ORDERED: NovoLIN R (or HumuLIN R) SUBCUT PRN (16:50)
[2021-12-15] MEDS ORDERED: PULMICORT NEB TX 0.5 MG NEB SCH (17:00)
[2021-12-15] MEDS ORDERED: LEVAQUIN PREMIX IV 750 MG 750 MG/150 ML BAG IV SCH (17:00)
[2021-12-15] MEDS ORDERED: DUONEB 0.5 MG/3 MG (3 mL) NEB SCH (17:00)
[2021-12-15] MEDS ORDERED: NS 1/2 1,000 ML IV 1,000 ML IV ONE (17:02)
[2021-12-15] MEDS: NS 1/2 1,000 ML IV 1,000 ML IV SCH (17:11)
[2021-12-15] MEDS: VSL#3 PO SCH (17:12)
[2021-12-15] MEDS: ROBITUSSIN DM PO SCH ×2 (17:14→20:35)
[2021-12-15] MEDS: TAMIFLU PO SCH ×2 (17:14→20:35)
[2021-12-15] MEDS: DUONEB 0.5 MG/3 MG (3 mL) NEB SCH ×2 (17:20→21:00)
[2021-12-15 17:43] LABS: EOSINOPHILS % (AUTO) 0.9 % (0.9-2.9); HEMATOCRIT 38.4 % (36.0-47.0); HEMOGLOBIN 13.1 g/dL (12.0-16.0); LYMPHOCYTES # (AUTO) 0.4 X10^3/uL (1.3-2.9); LYMPHOCYTES % (AUTO) 12.9 % (21.0-51.0); MEAN CORPUSCULAR HEMOGLOBIN 31.1 pg (27.0-34.0); MEAN CORPUSCULAR VOLUME 91.2 fL (80.0-100.0); MEAN PLATELET VOLUME 7.2 fL (7.4-11.0); MONOCYTES # (AUTO) 0.3 x10^3/uL (0.3-0.8); MONOCYTES % (AUTO) 10.5 % (0.0-13.0); NEUTROPHILS # (AUTO) 2.3 x10^3/uL (2.2-4.8); NEUTROPHILS % (AUTO) 74.7 % (42.0-75.0); RED BLOOD COUNT 4.21 X10^6/uL (3.5-5.4); RED CELL DISTRIBUTION WIDTH 14.6 % (11.6-16.5); WHITE BLOOD COUNT 3.1 X10^3/uL (3.6-10.0)
[2021-12-15 18:05] LABS: ALANINE AMINOTRANSFERASE 26 Units/L (12-78); ALBUMIN 3.6 g/dL (3.4-5.0); ALKALINE PHOSPHATASE 101 Units/L (46-116); ASPARTATE AMINO TRANSFERASE 24 Units/L (15-37); BLOOD UREA NITROGEN 18 mg/dL (7-18); CALCIUM 8.3 mg/dL (8.5-10.1); CARBON DIOXIDE 30.7 mmol/L (21-32); CHLORIDE 97 mmol/L (98-107); SODIUM 134 mmol/L (136-145); TOTAL PROTEIN 7.8 g/dL (6.4-8.2); eGFR NON BLACK RACES 33 (>60)
[2021-12-15] MEDS ORDERED: TYLENOL 325 MG TAB PO PRN (19:30)
[2021-12-15] MEDS: FIORICET TAB PO PRN (20:05)
[2021-12-15] MEDS: SNACK - Diabetic Appropriate PO SCH (20:36)
[2021-12-15] MEDS: PULMICORT NEB TX 0.5 MG NEB SCH (21:00)
--- NOTE | 2021-12-15 22:11 | RAD ---
HISTORYPneumoniaSTUDYCHEST, PA/LAT ADULTCOMPARISONNoneFINDINGSThe lungs are clear. No pneumothorax or significant effusion.Probable cardiomegaly when accounting for magnification.Senescent kyphosis is present.Degenerative changes are present in the spine. []IMPRESSION1. No acute finding2. CardiomegalyElectronically signed by: Khoa St (Dec 15, 2021 22:09:10)
[2021-12-15] MEDS: TUSSIONEX PENNKINETIC SUSP PO PRN (23:32)
[2021-12-16] MEDS: FIORICET TAB PO PRN ×2 (03:29→13:22)
[2021-12-16] MEDS: ROBITUSSIN DM PO SCH ×5 (03:29→20:10)
[2021-12-16] MEDS: NS 1/2 1,000 ML IV 1,000 ML IV SCH ×2 (05:59→21:00)
[2021-12-16] MEDS ORDERED: NS 1/2 1,000 ML IV 1,000 ML IV ONE ×2 (06:00→20:52)
[2021-12-16 06:18] LABS: EOSINOPHILS % (AUTO) 0.3 % (0.9-2.9); HEMATOCRIT 33.5 % (36.0-47.0); HEMOGLOBIN 11.2 g/dL (12.0-16.0); LYMPHOCYTES # (AUTO) 0.7 X10^3/uL (1.3-2.9); LYMPHOCYTES % (AUTO) 23.6 % (21.0-51.0); MEAN CORPUSCULAR HEMOGLOBIN 30.3 pg (27.0-34.0); MEAN CORPUSCULAR HGB CONC 33.4 g/dL (33.0-35.0); MEAN CORPUSCULAR VOLUME 90.6 fL (80.0-100.0); MEAN PLATELET VOLUME 7.5 fL (7.4-11.0); MONOCYTES # (AUTO) 0.4 x10^3/uL (0.3-0.8); MONOCYTES % (AUTO) 14.4 % (0.0-13.0); NEUTROPHILS # (AUTO) 1.8 x10^3/uL (2.2-4.8); NEUTROPHILS % (AUTO) 60.7 % (42.0-75.0); RED BLOOD COUNT 3.69 X10^6/uL (3.5-5.4)
[2021-12-16 06:33] LABS: ALANINE AMINOTRANSFERASE 18 Units/L (12-78); ALBUMIN 2.6 g/dL (3.4-5.0); ALKALINE PHOSPHATASE 74 Units/L (46-116); ASPARTATE AMINO TRANSFERASE 21 Units/L (15-37); BLOOD UREA NITROGEN 17 mg/dL (7-18); CALCIUM 7.6 mg/dL (8.5-10.1); CARBON DIOXIDE 27.1 mmol/L (21-32); CHLORIDE 101 mmol/L (98-107); COR CA(FOR HYPOALB) 8.7 mg/dL (8.5-10.1); CREATININE 1.43 mg/dL (0.55-1.02); SODIUM 133 mmol/L (136-145); TOTAL PROTEIN 5.9 g/dL (6.4-8.2); eGFR NON BLACK RACES 38 (>60)
--- NOTE | 2021-12-16 06:47 | RAD ---
HISTORYShortness of breathSTUDYChest AP [id number]/12/2022FINDINGSHear t is enlarged. No congestive heart failure is noted. Lisset appear normal. Lung monte are clear. No pleural effusions are identified. Bony thorax is unremarkable.IMPRESSIONNo change cardiomegaly without congestive heart failureNo definite infiltratesElectronically signed by: ROD RICKS (Dec 16, 2021 06:45:48)
[2021-12-16 07:12] LABS: PLATELET MORPHOLOGY COMMENT NORMAL (NORMAL)
[2021-12-16 07:13] LABS: BAND NEUTROPHILS % 6 % (0-10)
[2021-12-16] MEDS: PULMICORT NEB TX 0.5 MG NEB SCH ×2 (08:44→20:10)
[2021-12-16] MEDS: DUONEB 0.5 MG/3 MG (3 mL) NEB SCH ×4 (08:44→20:10)
--- NOTE | 2021-12-16 08:55 | DR.H&P ---
H&P - History & Physical for Day of: H&P Date: 12/15/21 - Chief Complaint Chief Complaint: COUGH, CONGESTION, FEVER, BODY ACHES - History of Present Illness History of Present Illness: IS A 76 YEAR OLD PATIENT OF OURS. SHE PRESENTED TO THE HOSPITAL FOR A DIRECT ADMISSION FOR TREATMENT OF BRONCHOPNEUMONIA AND INFLUENZA A. PATIENT HAS APPARENTLY HAD SYMPTOMS OF FEVER, COUGH, CONGESTION, AND BODY ACHES FOR THE PAST WEEK. SHE RECEIVED A ROCEPHIN 1G IM INJECTION ON MONDAY. SHE DENIES IMPROVEMENT IN SYMPTOMS SINCE RECEIVING THE INJECTION. HER PMH INCLUDES: TINNITUS, CVA, CAD, HYPERLIPIDEMIA, SLEEP APNEA, CHRONIC CONSTIPATION, RENAL DISEASE, DM II, ANXIETY, APPENDECTOMY, AND HYSTERECTOMY. ON ARRIVAL TO THE HOSPITAL, VITALS WERE: 99.5-92-20-96%-166/80. LABS WERE OBTAINED. WBC 3.1, RBC 4.21, HGB 13.1, HCT 38.4, SODIUM 134, POTASSIUM 4.2, CHLORIDE 97, BUN 18, CREATININE 1.60, GLUCOSE 85, CALCIUM 8.3, AST 24, ALT 26, ALK PHOS 101, TOTAL PROTEIN 7.8, ALBUMIN 3.6. COVID AND RSV NEGATIVE. INFLUENZA A IS POSITIVE. BLOOD AND SPUTUM CULTURES WERE SET UP. A CHEST XRAY WAS OBTAINED AND REVEALED: The lungs are clear. No pneumothorax or significant effusion. Probable cardiomegaly when accounting for magnification. Senescent kyphosis is present. Degenerative changes are present in the spine. SHE WAS STARTED ON 1/2NS AT 75 ML/HR, LEVAQUIN 750MG IV DAILY, FORTAZ 1G IV Q8H, DUONEBS QID, PULMICORT NEBS BID, TAMIFLU 75MG PO BID, TUSSIONEX 5ML PO Q12H PRN, ROBITUSSIN DM 10ML PO QID, OTBS ACHS, NOVOLIN R SLIDING SCALE, FIORICET 1 TAB PO Q6H PRN, AND TYLENOL 650MG PO Q4H PRN. OTHERWISE, WE PLAN TO FOLLOW-UP WITH AM LABS AND CONTINUE TO MONITOR. TIME SPENT ON CLINICAL ASSESSMENT, REVIWING LABS AND IMAGING, DECISION MAKING, AND DOCUMENTATION GREATER THAN 75 MINUTES. - Past Medical History Past Medical History: Anxiety, Arthritis, Coronary Artery Disease, CVA, Diabetes, Dyslipidemia, Renal Disease, Sleep Apnea - Past Surgical History Surgical History: Appendectomy, Hysterectomy Additional Surgical History: CATARACT SURGERY - Family History Family Medical History: Diabetes Mellitus, [place], Coronary Artery Disease, Sudden Cardiac , Hypertension - Social History Does patient currently use any type of tobacco product: No Have you used tobacco products in the last 12 months: No Type of Tobacco Use: None Does any household member use tobacco: No Alcohol Use: None Drug Use: None - Medications Home Medications: penicillin G Allergy (Verified 05/19/17 08:12) CONTINUE taking the following medications clonazepam 0.5 mg tablet 0.5 mg PO HS 12/15/21 [History] folic acid 1 mg tablet 1 mg PO DAILY 12/15/21 [History] furosemide 20 mg tablet 20 mg PO BID 12/15/21 [History] meloxicam 7.5 mg tablet 7.5 mg PO BID 12/15/21 [History] - Review of Systems Constitutional: Fever, Chills, Weakness Eyes: No Symptoms Reported ENT: No Symptoms Reported Respiratory: Cough, Shortness of Breath, SOB with Excertion, Wheezing Cardiovascular: No Symptoms Reported Gastrointestinal: No Symptoms Reported Genitourinary: No Symptoms Reported Musculoskeletal: No Symptoms Reported Skin: No Symptoms Reported Neurological: Weakness - Physical Exam Vital Signs: Temperature 98.0 F Pulse Rate [Left Brachial] 70 Pulse Rate 94 Respiratory Rate 18 Blood Pressure [Right Arm] 117/68 Blood Pressure 113/63 O2 Sat by Pulse Oximetry 97 Oriented: Normal Eyes: Normal Ear: Normal Nose: Normal Throat: Normal Respiratory: Wheezes Throughout Cardiovascular: Normal : Normal Auscultation: Bowel Sounds: Normal Palpation: Normal Tenderness: Normal Skin: Normal Musculoskeletal: Normal Psychiatric: Normal Mood Description: Calm Affect: Normal Speech Pattern: Clear - Assessment/Plan (1) Bronchopneumonia Status: Acute Plan: ADMIT, 1/2NS AT 75 ML/HR, LEVAQUIN 750MG IV DAILY, FORTAZ 1G IV Q8H, DUONEBS QID, PULMICORT NEBS BID, SOLU-MEDROL 20MG IV Q8H, TAMIFLU 75MG PO BID, TUSSIONEX 5ML PO Q12H PRN, ROBITUSSIN DM 10ML PO QID, OTBS ACHS, NOVOLIN R SLIDING SCALE, FIORICET 1 TAB PO Q6H PRN, AND TYLENOL 650MG PO Q4H PRN. (2) Influenza A Status: Acute (3) Diabetes mellitus Qualifiers: Diabetes mellitus type: type 2 Diabetes mellitus prison insulin use: with prison use Diabetes mellitus complication status: with hyperglycemia Qualified Code(s): E11.65 - Type 2 diabetes mellitus with hyperglycemia; Z79.4 - watermaster (current) use of insulin Status: Chronic - Allergies Allergies/Adverse Reactions: Allergies Allergy/AdvReac Type Severity Reaction Status Date / Time penicillin G Allergy Verified 05/19/17 08:12
[2021-12-16] MEDS: FORTAZ or TAZICEF VIAL INJ 1 G in NS 100 ML IV 100 ML IV SCH ×2 (09:07→20:12)
[2021-12-16] MEDS: VSL#3 PO SCH (09:07)
[2021-12-16] MEDS: TAMIFLU PO SCH ×2 (09:07→20:11)
[2021-12-16] MEDS: SOLU-Medrol 40 MG VIAL IVP SCH ×3 (12:00→21:01)
[2021-12-16] MEDS ORDERED: POTASSIUM CHLORIDE LIQ 20 MEQ UDC PO PRN (17:36)
[2021-12-16] MEDS ORDERED: K-RIDER 10 MEQ/NS 100 ML 10 MEQ/100 ML BAG IV PRN (17:36)
[2021-12-16] MEDS ORDERED: POTASSIUM CHL 40 MEQ/NS 0.45% 500 ML IV PRN (17:36)
[2021-12-16] MEDS ORDERED: POTASSIUM CHL 60 MEQ/NS 0.45% 500 ML IV PRN (17:36)
[2021-12-16] MEDS ORDERED: KLOR-CON PO PRN (17:36)
[2021-12-16] MEDS ORDERED: K-DUR TAB 20 MEQ PO PRN (17:36)
[2021-12-16] MEDS ORDERED: MICRO K EXTEN CAP 10 MEQ PO PRN (17:36)
[2021-12-16] MEDS: SNACK - Diabetic Appropriate PO SCH (20:15)
[2021-12-16] MEDS ORDERED: KLONOPIN TAB 0.5 MG PO SCH (21:00)
[2021-12-17] MEDS: MAGNESIUM SULFATE 1 GRAM/100 mL PREMIX 1 G/100 ML BAG IV PRN ×2 (00:23→01:29)
[2021-12-17] MEDS: TUSSIONEX PENNKINETIC SUSP PO PRN (02:44)
[2021-12-17] MEDS: SOLU-Medrol 40 MG VIAL IVP SCH ×3 (05:22→21:05)
--- NOTE | 2021-12-17 05:43 | RAD ---
HISTORYSOB HX: CVAM CAD, DMSTUDYCHEST, 1 [id number]/13/2022FINDINGSThe trachea is midline. The cardiac silhouette is unremarkable. The lungs are clear without focal infiltrate or effusion. The bony thorax is unremarkable.IMPRESSIONNo acute cardiopulmonary findings .Electronically signed by: Francis Nuno (Dec 17, 2021 05:41:56)
[2021-12-17 06:21] LABS: BASOPHILS % (AUTO) 0.2 % (0.2-1.0); HEMATOCRIT 33.8 % (36.0-47.0); HEMOGLOBIN 11.5 g/dL (12.0-16.0); LYMPHOCYTES # (AUTO) 0.5 X10^3/uL (1.3-2.9); LYMPHOCYTES % (AUTO) 19.1 % (21.0-51.0); MEAN CORPUSCULAR VOLUME 91.1 fL (80.0-100.0); MEAN PLATELET VOLUME 7.3 fL (7.4-11.0); MONOCYTES # (AUTO) 0.2 x10^3/uL (0.3-0.8); MONOCYTES % (AUTO) 7.8 % (0.0-13.0); NEUTROPHILS # (AUTO) 1.9 x10^3/uL (2.2-4.8); NEUTROPHILS % (AUTO) 72.9 % (42.0-75.0); RED BLOOD COUNT 3.71 X10^6/uL (3.5-5.4); RED CELL DISTRIBUTION WIDTH 14.4 % (11.6-16.5); WHITE BLOOD COUNT 2.6 X10^3/uL (3.6-10.0)
[2021-12-17 06:35] LABS: ALBUMIN 2.7 g/dL (3.4-5.0); CALCIUM 7.9 mg/dL (8.5-10.1); CARBON DIOXIDE 26.9 mmol/L (21-32); COR CA(FOR HYPOALB) 8.9 mg/dL (8.5-10.1); CREATININE 1.35 mg/dL (0.55-1.02); MAGNESIUM 2.6 mg/dL (1.7-2.9); TOTAL PROTEIN 6.1 g/dL (6.4-8.2)
[2021-12-17] MEDS: DUONEB 0.5 MG/3 MG (3 mL) NEB SCH ×3 (08:14→16:19)
[2021-12-17] MEDS: PULMICORT NEB TX 0.5 MG NEB SCH ×2 (08:14→21:45)
[2021-12-17] MEDS: FORTAZ or TAZICEF VIAL INJ 1 G in NS 100 ML IV 100 ML IV SCH ×2 (08:28→21:03)
[2021-12-17] MEDS: ROBITUSSIN DM PO SCH ×4 (08:29→21:06)
[2021-12-17] MEDS: TAMIFLU PO SCH ×2 (08:29→21:07)
[2021-12-17] MEDS: VSL#3 PO SCH (08:29)
[2021-12-17] MEDS ORDERED: LEVAQUIN PREMIX IV 750 MG 750 MG/150 ML BAG IV SCH (09:00)
[2021-12-17] MEDS ORDERED: GLUCOPHAGE ONE (10:39)
[2021-12-17] MEDS: LASIX PO SCH ×2 (10:41→21:09)
[2021-12-17] MEDS: MOBIC TAB 15 MG PO SCH ×2 (10:42→21:09)
[2021-12-17] MEDS: GLUCOPHAGE PO SCH (10:42)
[2021-12-17] MEDS: FOLIC ACID TAB 1 MG PO SCH (10:42)
[2021-12-17] MEDS ORDERED: CHLORASEPTIC SPRAY MT PRN (10:54)
[2021-12-17] MEDS: NS 1/2 1,000 ML IV 1,000 ML IV SCH (11:16)
[2021-12-17] MEDS ORDERED: NS 1/2 1,000 ML IV 1,000 ML IV ONE (17:48)
--- NOTE | 2021-12-17 20:02 | PCM.PROG ---
Progress Note - Progress Note for Day of Date of Exam: 12/17/21 - Subjective Subjective: WAS ADMITTED FOR TREATMENT OF BRONCHOPNEUMONIA AND INFLUENZA A. SHE HAS A HISTORY OF TYPE 2 DIABETS. TODAY, SHE IS ALERT AND ORIENTED, LYING IN BED ON MORNING ROUNDS. SHE CONTINUES WITH COMPLANTS OF COUGH, SHORTNESS OF BREATH, SORE THROAT, AND WEAKNESS. SHE DOES REPORT SLIGHT IMPROVE MENT IN SYMPTOMS SINCE ADMISSION. ON EXAMINATION, HEART IS REGULAR IN RATE AND RHYTHM. BILATERAL LUNGS ARE NOTED WITH SCATTERED WHEEZING THROUGHOUT. ABDOMEN IS ROUND, SOFT, AND NON-TENDER WITH NORMAL BOWEL SOUNDS NOTED IN ALL QUADRANTS. TRACE LOWER EXTREMITY EDEMA NOTED. HER VITALS THIS MORNING ARE: 98.4-68-20-96%-133/71. LABS WERE OBTAINED. WBC 2.6, RBC 3.71, HGB 11.5, HCT 33.8, PLT COUNT 176, SODIUM 136, POTASSIUM 6.0, CHLORIDE 104, BUN 18, CREATININE 1.35, GLUCOSE 128, CALCIUM 7.9, GLUCOSE 128, AST 18, ALT 21, ALK PHOS 76, TOTAL PROTEIN 6.1, ALBUMIN 2.7. A CHEST XRAY WAS OBTAINED AND REVEALED: The trachea is midline. The cardiac silhouette is unremarkable. The lungs are clear without focal infiltrate or effusion. The bony thorax is unremarkable. SHE IS CURRENTLY RECEIVING 1/2NS AT 75 ML/HR, LEVAQUIN 750MG IV DAILY, FORTAZ 1G IV Q8H, DUONEBS QID, PULMICORT NEBS BID, TAMIFLU 75MG PO BID, SOLU-MEDROL 20MG IV Q12H, TUSSIONEX 5ML PO Q12H PRN, ROBITUSSIN DM 10ML PO QID, OTBS ACHS, NOVOLIN R SLIDING SCALE, FIORICET 1 TAB PO Q6H PRN, AND TYLENOL 650MG PO Q4H PRN. HER HOME MEDICATIONS WERE ALSO RESUMED. TODAY, WE WILL INCREASE HER KLONOPIN TO 1MG PO HS. OTHERWISE, WE WILL CONTINUE WITH CURRENT PLAN OF CARE. WE PLAN TO FOLLOW-UP WITH AM LABS AND CONTINUE TO MONITOR. - Past Medical Family Social History Past Med/Fam/Surg Hx: No changes since H&P Allergies: Allergies penicillin G Allergy (Verified 05/19/17 08:12) - Review of Systems ROS: No change since H&P - Vital Signs and I&O's Vital Signs: Temperature 98.1 F Pulse Rate [Left Brachial] 64 Pulse Rate 73 Respiratory Rate 20 Blood Pressure [Right Arm] 134/74 Blood Pressure 113/63 O2 Sat by Pulse Oximetry 96 Intake and Output: Intake & Output 12/15/21 12/16/21 12/17/21 12/18/21 11:59 11:59 11:59 11:59 Intake Total 2039 2538 / 2538 950 / 950 Balance 2039 2538 / 2538 950 / 950 - Physical Exam Oriented: Normal Eyes: Normal Ear: Normal Nose: Normal Throat: Normal Respiratory: Generalized, Diminished, Wheezes Cardiovascular: Normal : Normal Auscultation: Bowel Sounds: Normal Palpation: Normal Tenderness: Normal Skin: Normal Musculoskeletal: Normal Psychiatric: Normal Mood Description: Calm Affect: Normal Speech Pattern: Clear, Appropriate - Laboratory and Diagnostics Result Diagrams: 12/17/21 05:23 12/17/21 05:23 Labs: 12/15/21 17:12 Sputum - Expectorated Sputum Sputum Culture - Final 12/15/21 17:12 Sputum - Expectorated Sputum - Final Laboratory WBC 2.6 X10^3/uL (3.6-10.0) L 12/17/21 05:23 RBC 3.71 X10^6/uL (3.5-5.4) 12/17/21 05:23 Hgb 11.5 g/dL (12.0-16.0) L 12/17/21 05:23 Hct 33.8 % (36.0-47.0) L 12/17/21 05:23 MCV 91.1 fL (80.0-100.0) 12/17/21 05:23 MCH 31.0 pg (27.0-34.0) 12/17/21 05:23 MCHC 34.0 g/dL (33.0-35.0) 12/17/21 05:23 RDW 14.4 % (11.6-16.5) 12/17/21 05:23 Plt Count 176 X10^3/uL (150.0-450.0) 12/17/21 05:23 Plt Count Comment Adequate (ADEQUATE) 12/16/21 05:20 MPV 7.3 fL (7.4-11.0) L 12/17/21 05:23 Neut % (Auto) 72.9 % (42.0-75.0) 12/17/21 05:23 Lymph % (Auto) 19.1 % (21.0-51.0) L 12/17/21 05:23 [place] % (Auto) 7.8 % (0.0-13.0) 12/17/21 05:23 Eos % (Auto) 0.0 % (0.9-2.9) L 12/17/21 05:23 Baso % (Auto) 0.2 % (0.2-1.0) 12/17/21 05:23 Neut # (Auto) 1.9 x10^3/uL (2.2-4.8) L 12/17/21 05:23 Lymph # (Auto) 0.5 X10^3/uL (1.3-2.9) L 12/17/21 05:23 [place] # (Auto) 0.2 x10^3/uL (0.3-0.8) L 12/17/21 05:23 Eos # (Auto) 0.0 x10^3/uL (0.0-0.2) 12/17/21 05:23 Baso # (Auto) 0.0 X10^3/uL (0.0-0.1) 12/17/21 05:23 Absolute Nucleated RBC 0.1 /100WBC 12/17/21 05:23 Total Counted 100 12/16/21 05:20 Neutrophils % (Manual) 67 % (39-76) 12/16/21 05:20 Band Neutrophils % 6 % (0-10) 12/16/21 05:20 Lymphocytes % (Manual) 16 % (13-43) 12/16/21 05:20 Monocytes % (Manual) 11 % (4-9) H 12/16/21 05:20 Plt Morphology Comment Normal (NORMAL) 12/16/21 05:20 RBC Morphology Normal (NORMAL) 12/16/21 05:20 Sodium 136 mmol/L (136-145) 12/17/21 05:23 Corrected Sodium 137 mmol/L (136-145) 12/17/21 05:23 Potassium 6.0 mmol/L (3.5-5.1) H* 12/17/21 05:23 Chloride 104 mmol/L (98-107) 12/17/21 05:23 Carbon Dioxide 26.9 mmol/L (21-32) 12/17/21 05:23 BUN 18 mg/dL (7-18) 12/17/21 05:23 Creatinine 1.35 mg/dL (0.55-1.02) H 12/17/21 05:23 Est GFR (MDRD) Af Amer 49 (>60) L 12/17/21 05:23 Est GFR (MDRD) Non-Af 40 (>60) L 12/17/21 05:23 Glucose 128 mg/dL (65-99) H 12/17/21 05:23 POC Glucose (mg/dL) 117 mg/dL (65-99) H 12/17/21 17:39 Calcium 7.9 mg/dL (8.5-10.1) L 12/17/21 05:23 Corrected Calcium 8.9 mg/dL (8.5-10.1) 12/17/21 05:23 Magnesium 2.6 mg/dL (1.7-2.9) 12/17/21 05:23 Total Bilirubin 0.20 mg/dL (0.2-1.0) 12/17/21 05:23 AST 18 Units/L (15-37) 12/17/21 05:23 ALT 21 Units/L (12-78) 12/17/21 05:23 Alkaline Phosphatase 76 Units/L (46-116) 12/17/21 05:23 Total Protein 6.1 g/dL (6.4-8.2) L 12/17/21 05:23 Albumin 2.7 g/dL (3.4-5.0) L 12/17/21 05:23 Globulin 3.4 g/dL (2.5-4.5) 12/17/21 05:23 Albumin/Globulin Ratio 0.8 Ratio (1.1-2.1) L 12/17/21 05:23 SARS-CoV-2 (PCR) Negative (NEGATIVE) 12/15/21 17:00 Influenza Type A (PCR) Positive (NEGATIVE) A 12/15/21 17:00 Influenza Type B (PCR) Negative (NEGATIVE) 12/15/21 17:00 RSV (PCR) Negative (NEGATIVE) 12/15/21 17:00 - Plan (1) Bronchopneumonia Status: Acute Plan: 1/2NS AT 75 ML/HR, LEVAQUIN 750MG IV DAILY, FORTAZ 1G IV Q8H, DUONEBS QID, PULMICORT NEBS BID, SOLU-MEDROL 20MG IV Q8H, TAMIFLU 75MG PO BID, TUSSIONEX 5ML PO Q12H PRN, ROBITUSSIN DM 10ML PO QID, OTBS ACHS, NOVOLIN R SLIDING SCALE, FIORICET 1 TAB PO Q6H PRN, AND TYLENOL 650MG PO Q4H PRN. (2) Influenza A Status: Acute (3) Hyperkalemia Status: Acute (4) Diabetes mellitus Status: Chronic Qualifiers: Diabetes mellitus type: type 2 Diabetes mellitus [facility] insulin use: with longwall headgate operator use Diabetes mellitus complication status: with hyperglycemia Qualified Code(s): E11.65 - Type 2 diabetes mellitus with hyperglycemia; Z79.4 - nursing home (current) use of insulin
[2021-12-17] MEDS ORDERED: KLONOPIN TAB 0.5 MG PO SCH (21:00)
[2021-12-17] MEDS: SNACK - Diabetic Appropriate PO SCH (21:03)
[2021-12-18] MEDS: XOPENEX 1.25 MG/3 ML NEBULE NEB SCH ×2 (00:31→06:27)
[2021-12-18] MEDS: NS 1/2 1,000 ML IV 1,000 ML IV SCH ×2 (02:07→06:03)
[2021-12-18] MEDS: SOLU-Medrol 40 MG VIAL IVP SCH (05:11)
[2021-12-18] MEDS ORDERED: NS 1/2 1,000 ML IV 1,000 ML IV ONE (05:53)
[2021-12-18 06:32] LABS: BASOPHILS % (AUTO) 0.2 % (0.2-1.0); HEMATOCRIT 35.8 % (36.0-47.0); HEMOGLOBIN 12.1 g/dL (12.0-16.0); LYMPHOCYTES # (AUTO) 0.6 X10^3/uL (1.3-2.9); LYMPHOCYTES % (AUTO) 17.5 % (21.0-51.0); MEAN CORPUSCULAR HEMOGLOBIN 30.7 pg (27.0-34.0); MEAN CORPUSCULAR HGB CONC 33.6 g/dL (33.0-35.0); MEAN CORPUSCULAR VOLUME 91.3 fL (80.0-100.0); MEAN PLATELET VOLUME 7.5 fL (7.4-11.0); MONOCYTES # (AUTO) 0.2 x10^3/uL (0.3-0.8); MONOCYTES % (AUTO) 6.2 % (0.0-13.0); NEUTROPHILS # (AUTO) 2.5 x10^3/uL (2.2-4.8); NEUTROPHILS % (AUTO) 76.1 % (42.0-75.0); RED BLOOD COUNT 3.93 X10^6/uL (3.5-5.4); RED CELL DISTRIBUTION WIDTH 14.1 % (11.6-16.5); WHITE BLOOD COUNT 3.3 X10^3/uL (3.6-10.0)
[2021-12-18 06:47] LABS: ALBUMIN 2.7 g/dL (3.4-5.0); CARBON DIOXIDE 26.1 mmol/L (21-32); CREATININE 1.38 mg/dL (0.55-1.02); TOTAL PROTEIN 6.2 g/dL (6.4-8.2)
--- NOTE | 2021-12-18 06:53 | RAD ---
CHEST, 1 VIEWHISTORY: SOBStudy: Single view of the chest.Comparison:December 17, 2021Findings:The cardiomediastinal silhouette is normal.No focal consolidations, pleural effusions or pneumothorax. Osseous structures demonstrate no acute abnormality.IMPRESSION:1. No acute cardiopulmonary process.Electronically signed by: ROBERTO KINSEY (Dec 18, 2021 06:50:52)
[2021-12-18] MEDS ORDERED: GLUCOPHAGE ONE (07:51)
[2021-12-18] MEDS: PULMICORT NEB TX 0.5 MG NEB SCH (08:01)
[2021-12-18] MEDS: FORTAZ or TAZICEF VIAL INJ 1 G in NS 100 ML IV 100 ML IV SCH (08:44)
[2021-12-18] MEDS: TAMIFLU PO SCH (08:45)
[2021-12-18] MEDS: VSL#3 PO SCH (08:45)
[2021-12-18] MEDS: ROBITUSSIN DM PO SCH (08:45)
[2021-12-18] MEDS: GLUCOPHAGE PO SCH (08:45)
[2021-12-18] MEDS: FOLIC ACID TAB 1 MG PO SCH (08:45)
[2021-12-18] MEDS: MOBIC TAB 15 MG PO SCH (08:46)
[2021-12-18 09:54] VITALS: BP 118/56
[2021-12-18] MEDS: LASIX PO SCH (09:55)
== END 2021-12-18 10:45 | disposition home or self-care (01) ==
LOC: MED/SURG
PROVIDERS: ADMIT Internal Medicine; ATTEND Internal Medicine
DX: I25.10 Atherosclerotic heart disease of native coronary artery without angina pectoris; J10.08 Influenza due to other identified influenza virus with other specified pneumonia; E11.65 Type 2 diabetes mellitus with hyperglycemia; E87.5 Hyperkalemia; J18.0 Bronchopneumonia, unspecified organism; Z20.822 Contact with and (suspected) exposure to COVID-19; R94.4 Abnormal results of kidney function studies; Z79.4 Long term (current) use of insulin; K21.9 Gastro-esophageal reflux disease without esophagitis; R06.02 Shortness of breath; R53.1 Weakness; E78.2 Mixed hyperlipidemia